=== PATIENT | female | born 1985 | race Caucasian/White ===

== ENCOUNTER 2017-11-18 13:07 | Outpatient (CLI) | payer OTHER ==
[2017-11-18 13:14] VITALS: BP 109/68
[2017-11-18] MEDS ORDERED: ESCI20TA10 PO (14:42)
[2017-11-18] MEDS ORDERED: FERR325T5 PO (14:45)
[2017-11-18] MEDS ORDERED: PREN1TAB60 PO (14:46)
== END 2017-11-18 15:20 | disposition home or self-care (01) ==
LOC: LDOP 13:07
PROVIDERS: ATTEND Obstetrics & Gynecology Gynecology
DX: O26.893 Other specified pregnancy related conditions, third trimester (principal); R10.9 Unspecified abdominal pain; Z3A.36 36 weeks gestation of pregnancy
CPT/HCPCS: 59025; 99201; G0463

== ENCOUNTER 2017-11-19 18:35 | Outpatient (CLI) | payer OTHER ==
[~2017-11-19] VITALS: Ht 170.2 cm; Wt 76.4 kg
[~2017-11-19 18:35] MED LIST: ESCI20TA10 PO; FERR325T5 PO; PREN1TAB60 PO
[2017-11-19 18:46] VITALS: BP 109/71
[2017-11-19] MEDS ORDERED: TERBUTALINE 1 MG/ML, 1ML ONE (19:12)
[2017-11-19] MEDS ORDERED: TERBUTALINE 1 MG/ML, 1ML SQ ONE (19:30)
[2017-11-19 19:47] LABS: MICROSCOPIC NOT IND
== END 2017-11-19 20:56 | disposition home or self-care (01) ==
LOC: LDOP 18:35
PROVIDERS: ATTEND Obstetrics & Gynecology Gynecology
DX: O62.9 Abnormality of forces of labor, unspecified (principal); O26.893 Other specified pregnancy related conditions, third trimester; R10.9 Unspecified abdominal pain; M54.9 Dorsalgia, unspecified; Z3A.00 Weeks of gestation of pregnancy not specified
CPT/HCPCS: 59025; 81003; 87086; 96372; 99211; J3105; G0463

== ENCOUNTER 2017-11-21 12:54 | Outpatient (CLI) | payer OTHER ==
[~2017-11-21] VITALS: Ht 170.2 cm; Wt 76.3 kg
[2017-11-21 13:04] VITALS: BP 110/69
[2017-11-21] MEDS ORDERED: TERBUTALINE 1 MG/ML, 1ML SQ ONE (14:00)
[2017-11-21] MEDS ORDERED: TERBUTALINE 1 MG/ML, 1ML ONE (14:01)
== END 2017-11-21 15:27 | disposition home or self-care (01) ==
LOC: LDOP 12:54
PROVIDERS: ATTEND Obstetrics & Gynecology Gynecology
DX: O26.893 Other specified pregnancy related conditions, third trimester (principal); R10.9 Unspecified abdominal pain; Z3A.33 33 weeks gestation of pregnancy
CPT/HCPCS: 59025; 96372; 99211; J3105; G0463

== ENCOUNTER → 2018-05-20 | Outpatient (CLI) | payer OTHER ==
[~2018-05-20] MED LIST changes: +IBUP-1222 PO; +OXYC-302 PO
[2018-05-20 14:43] LABS: BASOPHILS # (AUTO) 0.02 x10^3/uL (0-0.1); BASOPHILS % (AUTO) 0 % (0-1); EOSINOPHILS # (AUTO) 0.08 x10^3/uL (0-0.4); EOSINOPHILS % (AUTO) 1 % (1-7); LYMPHOCYTES # (AUTO) 1.52 x10^3/uL (1-3.4); LYMPHOCYTES % (AUTO) 22 % (22-44); MD NO; MEAN CORPUSCULAR HEMOGLOBIN 28.3 pg (27.0-34.8); MEAN CORPUSCULAR HGB CONC 33.2 g/dL (32.4-35.8); MEAN CORPUSCULAR VOLUME 85.1 fL (80-100); MEAN PLATELET VOLUME 7.9 fL (7.4-10.4); MONOCYTES # (AUTO) 0.53 x10^3/uL (0.2-0.8); MONOCYTES % (AUTO) 8 % (2-9); NEUTROPHILS # (AUTO) 4.87 x10^3/uL (1.8-6.8); NEUTROPHILS % (AUTO) 69 % (42-75); PLATELET COUNT 348 x10^3/uL (130-400); RED BLOOD COUNT 4.72 x10^6/uL (3.82-5.3); RED CELL DISTRIBUTION WIDTH 14.8 % (9.6-15.2)
[2018-05-20 14:51] LABS: ALANINE AMINOTRANSFERASE 15 U/L (12-78); ALBUMIN 3.8 g/dL (3.4-5.0); ANION GAP 8 mmol/L (5-15); CALCIUM 8.7 mg/dL (8.5-10.1); CHLORIDE 108 mmol/L (98-107); CREATININE 0.78 mg/dL (0.55-1.02)
[2018-05-20 14:53] LABS: ALKALINE PHOSPHATASE 65 U/L (45-117); BILIRUBIN,TOTAL 0.3 mg/dL (0.2-1.0)
== END | disposition home or self-care (01) ==
LOC: STAR 13:39
PROVIDERS: ATTEND Surgery
DX: Z01.818 Encounter for other preprocedural examination (principal); K56.51 Intestinal adhesions [bands], with partial obstruction; R10.31 Right lower quadrant pain
CPT/HCPCS: 36415; 80053; 85025; 93005

== ENCOUNTER 2018-05-26 10:28 | Inpatient (IN) | payer OTHER ==
[~2018-05-26] VITALS: Ht 170.2 cm; Wt 70.6 kg
[2018-05-26 11:02] VITALS: BP 107/69
[2018-05-26] MEDS ORDERED: LACTATED RINGERS 1,000 ML IV SCH ×2 (11:02→13:34)
[2018-05-26] MEDS ORDERED: OXYC5CAP2 PO (11:08)
[2018-05-26] MEDS ORDERED: FENTANYL PF 250 MCG/5ML ONE ×2 (12:18→13:08)
[2018-05-26] MEDS ORDERED: EPHEDRINE 50 MG/ML, 1ML ONE (12:26)
[2018-05-26] MEDS ORDERED: GLYCOPYRROLATE 0.2MG/1ML, 5ML ONE (12:40)
[2018-05-26] MEDS ORDERED: DEXAMETHASONE 4 MG/ML, 1ML ONE (12:40)
[2018-05-26] MEDS ORDERED: PROPOFOL 10 MG/ML, 20ML ONE (12:40)
[2018-05-26] MEDS ORDERED: SUCCINYLCHOLINE 20 MG/ML, 10ML ONE (12:40)
[2018-05-26] MEDS ORDERED: CEFAZOLIN 1,000 MG ONE (12:40)
[2018-05-26] MEDS ORDERED: ROCURONIUM 10MG/ML,5ML ONE (12:40)
[2018-05-26] MEDS ORDERED: ONDANSETRON 2MG/ML, 2ML ONE (12:40)
[2018-05-26] MEDS ORDERED: NEOSTIGMINE 1 MG/ML, 10ML ONE (12:40)
[2018-05-26 13:35] VITALS: BP 107/88
[2018-05-26] MEDS ORDERED: KETOROLAC 30 MG/1 ML ONE ×2 (14:12→16:34)
[2018-05-26] MEDS ORDERED: HYDROmorphone 2 MG/ML, 1ML ONE ×3 (14:27→20:45)
[2018-05-26] MEDS ORDERED: OXYcodone 5 MG/5 ML ORAL.SOL UDC ONE (14:28)
[2018-05-26] MEDS ORDERED: ONDANSETRON 2MG/ML, 2ML IV PRN (14:30)
[2018-05-26] MEDS ORDERED: MORPHINE SULFATE 4 MG/ML, 1ML IVPush PRN (14:30)
[2018-05-26] MEDS ORDERED: ONDANSETRON ODT 8 MG PO PRN (14:30)
[2018-05-26] MEDS ORDERED: MEPERIDINE/PF 25MG/0.5ML IVPush PRN (14:30)
[2018-05-26] MEDS ORDERED: FENTANYL PF 100 MCG/2ML IV PRN (14:30)
[2018-05-26] MEDS ORDERED: ACETAMINOPHEN 325 MG TABLET PO PRN (14:30)
[2018-05-26] MEDS ORDERED: PROMETHAZINE 25 MG/ML, 1ML IV PRN (14:30)
[2018-05-26] MEDS ORDERED: KETOROLAC 30 MG/1 ML IV PRN (14:30)
[2018-05-26] MEDS ORDERED: OXYcodone 5 MG/5 ML ORAL.SOL UDC PO PRN (14:30)
[2018-05-26] MEDS: HYDROmorphone 1 MG/ML, 1ML IV PRN ×5 (14:32→20:55)
[2018-05-26] MEDS: KETOROLAC 30 MG/1 ML IV SCH ×2 (16:39→22:45)
[2018-05-26] MEDS: OXYcodone/APAP 10/325MG TABLET PO PRN ×2 (18:37→22:45)
[2018-05-26 19:37] VITALS: BP 114/65
[2018-05-26 22:50] VITALS: BP 107/59
[2018-05-27] MEDS ORDERED: HYDROmorphone 2 MG/ML, 1ML ONE ×3 (00:04→07:23)
[2018-05-27] MEDS: HYDROmorphone 1 MG/ML, 1ML IV PRN ×3 (00:07→07:27)
[2018-05-27 03:00] VITALS: BP 105/64
[2018-05-27] MEDS: OXYcodone/APAP 10/325MG TABLET PO PRN ×2 (03:00→08:36)
[2018-05-27 04:55] VITALS: BP 101/60
[2018-05-27] MEDS: KETOROLAC 30 MG/1 ML IV SCH (04:56)
[2018-05-27 06:40] VITALS: BP 96/53
[2018-05-27 07:23] VITALS: BP 115/74
[2018-05-27] MEDS: ENOXAPARIN 30 MG/0.3 ML SQ SCH ×2 (08:36→21:06)
[2018-05-27] MEDS ORDERED: ONDANSETRON 2MG/ML, 2ML IVPush PRN (09:00)
[2018-05-27] MEDS ORDERED: LORazepam 1MG TABLET PO PRN (09:00)
[2018-05-27 09:34] LABS: BASOPHILS # (AUTO) 0.08 x10^3/uL (0-0.1); BASOPHILS % (AUTO) 1 % (0-1); EOSINOPHILS % (AUTO) 1 % (1-7); LYMPHOCYTES # (AUTO) 2.13 x10^3/uL (1-3.4); LYMPHOCYTES % (AUTO) 20 % (22-44); MD NO; MEAN CORPUSCULAR HEMOGLOBIN 28.3 pg (27.0-34.8); MEAN CORPUSCULAR HGB CONC 32.9 g/dL (32.4-35.8); MEAN CORPUSCULAR VOLUME 85.8 fL (80-100); MEAN PLATELET VOLUME 8.3 fL (7.4-10.4); MONOCYTES # (AUTO) 0.93 x10^3/uL (0.2-0.8); MONOCYTES % (AUTO) 9 % (2-9); NEUTROPHILS # (AUTO) 7.56 x10^3/uL (1.8-6.8); NEUTROPHILS % (AUTO) 70 % (42-75); PLATELET COUNT 352 x10^3/uL (130-400); RED BLOOD COUNT 4.41 x10^6/uL (3.82-5.3); RED CELL DISTRIBUTION WIDTH 14.4 % (9.6-15.2)
[2018-05-27] MEDS: ACETAMINOPHEN 650 MG/20.3 ML UDC PO PRN ×3 (10:51→23:59)
[2018-05-27] MEDS ORDERED: HYDROmorphone 2MG TABLET ONE ×4 (12:01→23:56)
[2018-05-27] MEDS: HYDROmorphone 4MG TABLET PO PRN ×4 (12:14→23:59)
[2018-05-27 16:00] VITALS: BP 102/64
[2018-05-27 19:32] VITALS: BP 101/65
[2018-05-28] MEDS ORDERED: HYDROmorphone 2MG TABLET ONE ×3 (03:58→11:54)
[2018-05-28] MEDS: HYDROmorphone 4MG TABLET PO PRN ×3 (04:01→11:58)
[2018-05-28 04:02] VITALS: BP 93/25
[2018-05-28] MEDS: ACETAMINOPHEN 650 MG/20.3 ML UDC PO PRN ×3 (06:10→23:01)
[2018-05-28 07:50] VITALS: BP 97/61
[2018-05-28] MEDS: ENOXAPARIN 30 MG/0.3 ML SQ SCH ×2 (08:03→20:03)
[2018-05-28 13:24] VITALS: BP 101/66
[2018-05-28] MEDS: OXYcodone 5 MG/5 ML ORAL.SOL UDC PO PRN ×3 (15:46→23:58)
[2018-05-28] MEDS: DOCUSATE 100 MG CAPSULE PO SCH (20:06)
[2018-05-28 20:27] VITALS: BP 93/56
[2018-05-29 03:46] VITALS: BP 93/57
[2018-05-29] MEDS: OXYcodone 5 MG/5 ML ORAL.SOL UDC PO PRN ×4 (03:57→17:01)
[2018-05-29] MEDS: ACETAMINOPHEN 650 MG/20.3 ML UDC PO PRN ×3 (04:57→17:05)
[2018-05-29 08:00] VITALS: BP 111/78
[2018-05-29] MEDS: ENOXAPARIN 30 MG/0.3 ML SQ SCH (08:04)
[2018-05-29] MEDS: DOCUSATE 100 MG CAPSULE PO SCH (08:05)
[2018-05-29 08:23] LABS: CREATININE 0.79 mg/dL (0.55-1.02)
[2018-05-29 14:00] VITALS: BP 95/55
== END 2018-05-29 17:58 | disposition home or self-care (01) | DRG 331 ==
LOC: ORIP 10:28 → 4NOR 15:27
PROVIDERS: ADMIT Surgery; ATTEND Surgery
PROC: 0DTF0ZZ Resection of Right Large Intestine, Open Approach (ICD-10-PCS; principal; 2018-05-26 12:30)
DX: K56.2 Volvulus (principal); G89.29 Other chronic pain; K66.0 Peritoneal adhesions (postprocedural) (postinfection); N80.9 Endometriosis, unspecified; N94.10 Unspecified dyspareunia; F32.9 Major depressive disorder, single episode, unspecified; Z82.49 Family history of ischemic heart disease and other diseases of the circulatory system; Z90.49 Acquired absence of other specified parts of digestive tract; Z88.2 Allergy status to sulfonamides; Z88.8 Allergy status to other drugs, medicaments and biological substances; Z91.018 Allergy to other foods; Z91.010 Allergy to peanuts
CPT/HCPCS: 36415; J3490; 82565; 84703; 85025; 86850; 86900; 88307; G0378; J0690; J1100; J1170; J1650; J1885; J2405; J2704; J2710; J3010; J0330; J7120

== ENCOUNTER 2019-08-10 14:12 | Outpatient (CLI) | payer OTHER ==
[~2019-08-10 14:12] MED LIST changes: +OXYC5CAP2 PO
[2019-08-10] MEDS ORDERED: ESCI20TA10 PO (14:40)
[2019-08-10] MEDS ORDERED: CYCL-259 PO (14:40)
[2019-08-10 15:18] LABS: BASOPHILS # (AUTO) 0.03 x10^3/uL (0-0.1); BASOPHILS % (AUTO) 0 % (0-1); EOSINOPHILS # (AUTO) 0.06 x10^3/uL (0-0.4); EOSINOPHILS % (AUTO) 1 % (1-7); LYMPHOCYTES # (AUTO) 2.36 x10^3/uL (1-3.4); LYMPHOCYTES % (AUTO) 25 % (22-44); MD NO; MEAN CORPUSCULAR HEMOGLOBIN 29.8 pg (27.0-34.8); MEAN CORPUSCULAR HGB CONC 34.9 g/dL (32.4-35.8); MEAN CORPUSCULAR VOLUME 85.6 fL (80-100); MEAN PLATELET VOLUME 7.6 fL (7.4-10.4); MONOCYTES # (AUTO) 0.45 x10^3/uL (0.2-0.8); MONOCYTES % (AUTO) 5 % (2-9); NEUTROPHILS # (AUTO) 6.63 x10^3/uL (1.8-6.8); NEUTROPHILS % (AUTO) 70 % (42-75); PLATELET COUNT 394 x10^3/uL (130-400); RED BLOOD COUNT 4.67 x10^6/uL (3.82-5.3); RED CELL DISTRIBUTION WIDTH 13.7 % (9.6-15.2)
[2019-08-10 15:28] LABS: ANION GAP 8 mmol/L (5-15); CHLORIDE 110 mmol/L (98-107)
[2019-08-10 15:32] LABS: ALANINE AMINOTRANSFERASE 22 U/L (12-78); ALKALINE PHOSPHATASE 56 U/L (45-117); BILIRUBIN,TOTAL 0.3 mg/dL (0.2-1.0); CREATININE 0.77 mg/dL (0.55-1.02); TOTAL PROTEIN 7.8 g/dL (6.4-8.2)
== END 2019-08-10 23:59 | disposition home or self-care (01) ==
LOC: STAR 14:12
PROVIDERS: ATTEND Specialist
DX: Z01.818 Encounter for other preprocedural examination (principal); N87.0 Mild cervical dysplasia; N80.9 Endometriosis, unspecified; G89.29 Other chronic pain; Z90.49 Acquired absence of other specified parts of digestive tract; N94.10 Unspecified dyspareunia; F32.9 Major depressive disorder, single episode, unspecified
CPT/HCPCS: 36415; 80053; 85025; 93005

== ENCOUNTER 2019-08-16 12:33 | Observation (INO) | payer OTHER ==
[~2019-08-16] VITALS: Ht 170.2 cm; Wt 86.0 kg
[~2019-08-16 12:33] MED LIST changes: +CYCL-259 PO
[2019-08-16 13:05] VITALS: BP 118/79
[2019-08-16] MEDS ORDERED: LACTATED RINGERS 1,000 ML IV SCH (13:08)
[2019-08-16] MEDS ORDERED: FENTANYL PF 250 MCG/5ML ONE (13:40)
[2019-08-16] MEDS ORDERED: BUPIVACAINE/PF 0.25% ONE (13:41)
[2019-08-16] MEDS ORDERED: SUCCINYLCHOLINE 20 MG/ML, 10ML ONE (13:41)
[2019-08-16] MEDS ORDERED: PROPOFOL 10 MG/ML, 20ML ONE (13:41)
[2019-08-16] MEDS ORDERED: ROCURONIUM 10MG/ML,5ML ONE (13:41)
[2019-08-16] MEDS ORDERED: DEXAMETHASONE 4 MG/ML, 1ML ONE ×2 (13:41→13:46)
[2019-08-16] MEDS ORDERED: DIPHENHYDRAMINE 50 MG/ML, 1ML ONE (13:46)
[2019-08-16 13:50] LABS: HCG UR SG 1.022 (1.003-1.030)
[2019-08-16] MEDS ORDERED: INDIGO CARMINE 0.8%, 5ML ONE (14:29)
[2019-08-16] MEDS ORDERED: ISOSULFAN BLUE 10 MG/ML, 5ML IV ONE (14:29)
[2019-08-16] MEDS ORDERED: CEFAZOLIN 1,000 MG ONE ×2 (14:39)
[2019-08-16] MEDS ORDERED: GENTIAN VIOLET SOLN 2% 60 ML ONE (14:53)
[2019-08-16] MEDS ORDERED: ALBUTEROL SULFATE 2.5 MG/3 ML NPPB PRN (15:00)
[2019-08-16] MEDS ORDERED: hydrALAzine 20 MG/ML, 1ML IV PRN (15:00)
[2019-08-16] MEDS ORDERED: ACETAMINOPHEN 325 MG TABLET PO PRN (15:00)
[2019-08-16] MEDS ORDERED: OXYcodone 5 MG/5 ML ORAL.SOL UDC PO PRN (15:00)
[2019-08-16] MEDS ORDERED: LABETALOL 5MG/ML, 20ML IV PRN (15:00)
[2019-08-16] MEDS ORDERED: HALOPERIDOL 5 MG/ML IV PRN (15:00)
[2019-08-16] MEDS ORDERED: ONDANSETRON ODT 8 MG PO PRN (15:00)
[2019-08-16] MEDS ORDERED: MEPERIDINE/PF 25MG/ML,1ML IVPush PRN (15:00)
[2019-08-16] MEDS ORDERED: SCOPOLAMINE PATCH, 1.5MG PATCH.TD72 TD PRN (15:00)
[2019-08-16] MEDS ORDERED: EPHEDRINE 50 MG/ML, 1ML IVPush PRN (15:00)
[2019-08-16] MEDS ORDERED: ONDANSETRON 2MG/ML, 2ML IV PRN ×2 (15:00→19:30)
[2019-08-16] MEDS ORDERED: FENTANYL PF 100 MCG/2ML ONE ×4 (15:12→17:23)
[2019-08-16] MEDS ORDERED: KETOROLAC 30 MG/1 ML ONE (15:31)
[2019-08-16] MEDS ORDERED: SUGAMMADEX 200 MG/2 ML IVPush ONE (15:33)
[2019-08-16] MEDS ORDERED: ONDANSETRON 2MG/ML, 2ML ONE ×2 (15:47)
[2019-08-16] MEDS: FENTANYL PF 100 MCG/2ML IV PRN ×5 (16:18→17:25)
[2019-08-16] MEDS ORDERED: HYDROmorphone 1 MG/ML, 1ML VIAL ONE ×4 (16:28→17:23)
[2019-08-16] MEDS: HYDROmorphone 2 MG/ML, 1ML IVPush PRN ×5 (16:31→18:25)
[2019-08-16] MEDS ORDERED: ONDANSETRON ODT 8 MG ONE (16:32)
[2019-08-16] MEDS ORDERED: OXYcodone 5 MG/5 ML ORAL.SOL UDC ONE (17:14)
[2019-08-16] MEDS ORDERED: ACETAMINOPHEN 650 MG/20.3 ML UDC ONE (17:14)
[2019-08-16] MEDS: CYCLOBENZAPRINE 10 MG TABLET PO SCH (19:46)
[2019-08-16] MEDS: MEPERIDINE/PF 100 MG/ML IM PRN ×2 (19:47→20:30)
[2019-08-16] MEDS ORDERED: ESTRADIOL 0.1 MG/24 HR PATCH TD SCH (20:00)
[2019-08-16] MEDS: KETOROLAC 30 MG/1 ML IV SCH (21:16)
[2019-08-16] MEDS: OXYcodone 5 MG/5 ML ORAL.SOL UDC PO PRN (21:27)
[2019-08-16] MEDS ORDERED: CEFAZOLIN PMX 2GM/50ML 50 ML IVPB ONE (22:00)
[2019-08-16] MEDS: HYDROmorphone 2 MG/ML, 1ML IV PRN ×2 (22:41→23:13)
[2019-08-17] MEDS: OXYcodone 5 MG/5 ML ORAL.SOL UDC PO PRN ×6 (00:21→23:24)
[2019-08-17] MEDS: HYDROmorphone 2 MG/ML, 1ML IV PRN ×5 (01:38→18:04)
[2019-08-17 03:04] VITALS: BP 111/76
[2019-08-17] MEDS: KETOROLAC 30 MG/1 ML IV SCH ×3 (03:36→14:51)
[2019-08-17] MEDS: D5%-LACTATED RINGERS 1,000 ML IV SCH ×3 (03:40→18:04)
[2019-08-17 06:15] VITALS: BP 90/54
[2019-08-17] MEDS: OXYcodone IR 5MG TABLET PO PRN ×2 (07:53→15:53)
[2019-08-17] MEDS: ESCITALOPRAM 10MG TABLET PO SCH (09:00)
[2019-08-17] MEDS: CYCLOBENZAPRINE 10 MG TABLET PO SCH ×2 (09:06→20:33)
[2019-08-17 12:07] VITALS: BP 95/66
[2019-08-17 20:06] VITALS: BP 103/69
[2019-08-17] MEDS: IBUPROFEN 600 MG TABLET PO SCH (20:33)
[2019-08-18] MEDS: HYDROmorphone 2 MG/ML, 1ML IV PRN ×2 (00:20→05:30)
[2019-08-18 01:17] VITALS: BP 94/65
[2019-08-18] MEDS: D5%-LACTATED RINGERS 1,000 ML IV SCH ×2 (02:41→11:00)
[2019-08-18] MEDS: IBUPROFEN 600 MG TABLET PO SCH ×2 (03:27→08:09)
[2019-08-18] MEDS: OXYcodone 5 MG/5 ML ORAL.SOL UDC PO PRN ×3 (03:29→12:14)
[2019-08-18 06:39] VITALS: BP 88/56
[2019-08-18] MEDS: CYCLOBENZAPRINE 10 MG TABLET PO SCH (08:09)
[2019-08-18] MEDS: ESCITALOPRAM 10MG TABLET PO SCH (08:09)
[2019-08-18] MEDS ORDERED: IBUP200T49 PO (09:39)
[2019-08-18] MEDS ORDERED: ESTR1PAT25 TD (09:43)
[2019-08-18 12:22] VITALS: BP 89/62
== END 2019-08-18 14:07 | disposition home or self-care (01) ==
LOC: INTOOBSV 12:33 → ORIP 12:33 → 4NE 19:00 → DCLOUNGE 08-18 14:00
PROVIDERS: ADMIT Specialist; ATTEND Specialist
DX: N80.9 Endometriosis, unspecified (principal); G89.29 Other chronic pain; R10.2 Pelvic and perineal pain; Z88.2 Allergy status to sulfonamides; F32.9 Major depressive disorder, single episode, unspecified; Z87.410 Personal history of cervical dysplasia; Z79.891 Long term (current) use of opiate analgesic
CPT/HCPCS: 36415; 58150; 81025; 85014; 85018; 86850; 86900; 88307; 96365; 96372; 96375; 96376; G0378; J0330; J0690; J1100; J1170; J1200; J1885; J2175; J2405; J2704; J3010; J3490; J7120; J7121; Q0162

== ENCOUNTER 2020-08-09 20:43 | Emergency (ER) | payer OTHER ==
[~2020-08-09] VITALS: Ht 170.2 cm; Wt 95.1 kg
[~2020-08-09 20:43] MED LIST changes: +ESTR1PAT25 TD; +IBUP200T49 PO
--- NOTE | 2020-08-09 20:58 | NUR ---
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
--- NOTE | 2020-08-09 21:33 | NUR ---
PT STATES SHE HAS A HX OF MIGRAINES BUT THEY HAVE NEVER PRESENTED LIKE THIS BEFORE. PT STATES SHE AWOKE THIS AM WITH BLURRY VISION IN HER LEFT EYE "I THOUGHT IT WAS JUST GUNK IN MY EYE FROM SLEEPING." PT STATES [place] WITH PHOTOPHOBIA BEGAN AT 1500 TODAY SHE ALSO NOTED BEING "DISORIENTED AND JUST NOT RIGHT." PT ALSO NOTED HER SCLERA IN HER LEFT EYE WAS RED.
[2020-08-09] MEDS ORDERED: PROPARACAINE OPHTH 0.5%, 15ML ONE (21:45)
[2020-08-09] MEDS ORDERED: ONDANSETRON 2MG/ML, 2ML ONE (21:45)
[2020-08-09] MEDS ORDERED: FLUORESCEIN OPHTHALMIC 1 MG STRIP ONE (21:46)
[2020-08-09] MEDS ORDERED: MORPHINE SULFATE 4 MG/ML, 1ML ONE ×2 (21:51→23:53)
[2020-08-09] MEDS ORDERED: PROPARACAINE OPHTH 0.5%, 15ML EACHEYE ONE (22:00)
[2020-08-09] MEDS ORDERED: MORPHINE SULFATE 4 MG/ML, 1ML IVPush ONE (22:00)
[2020-08-09] MEDS ORDERED: ONDANSETRON 2MG/ML, 2ML IVPush ONE (22:00)
--- NOTE | 2020-08-09 22:00 | NUR ---
RECEIVED REPORT FROM SHORTY. PT SITTING IN EXAM CHAIR WITH LIGHTS OFF FOR COMFORT, RESPONDS APPROP TO STAFF, C/O OF PAIN- MEDICATED PER EMAR, COMFORT MEASURES PROVIDED, CALL LIGHT WITHIN REACH.
[2020-08-09 22:22] LABS: BASOPHILS % (AUTO) 1 % (0-1); EOSINOPHILS % (AUTO) 2 % (1-7); LYMPHOCYTES % (AUTO) 26 % (22-44); MD NO; MEAN CORPUSCULAR HGB CONC 32.8 g/dL (32.4-35.8); MEAN PLATELET VOLUME 7.5 fL (7.4-10.4); MONOCYTES % (AUTO) 7 % (2-9); NEUTROPHILS % (AUTO) 65 % (42-75); PLATELET COUNT 367 x10^3/uL (130-400); RED CELL DISTRIBUTION WIDTH 15.3 % (9.6-15.2)
[2020-08-09 22:38] LABS: CHLORIDE 110 mmol/L (98-107)
--- NOTE | 2020-08-09 22:38 | NUR ---
CT PENDING BETA.
[2020-08-09 22:39] LABS: ALBUMIN 3.9 g/dL (3.4-5.0); ANION GAP 4 mmol/L (5-15); CALCIUM 8.9 mg/dL (8.5-10.1); CREATININE 0.91 mg/dL (0.55-1.02)
--- NOTE | 2020-08-09 23:02 | NUR ---
PT SITTING IN EXAM CHAIR WITH EYES CLOSED & LIGHTS OFF FOR COMFORT, RESPONDS APPROP TO STAFF, NAD, NO NEEDS AT THIS TIME, CALL LIGHT WITHIN REACH.
[2020-08-09] MEDS ORDERED: OMNIPAQUE 350 MG/ML, 75ML BOTTLE ONE (23:23)
[2020-08-09 23:49] VITALS: BP 121/83
[2020-08-09] MEDS: MORPHINE SULFATE 4 MG/ML, 1ML IVPush PRN (23:55)
--- NOTE | 2020-08-10 00:09 | NUR ---
REPORT GIVEN TO CIERRA
--- NOTE | 2020-08-10 00:18 | NUR ---
ASSUMED CARE OF PT. FROM PILAR MORENO. PT. SITTING IN CHAIR. DR. CORNEJO IN TO FURTHER EVAL PT. AND DISCUSS POC. OPTHO BEING CONSULTED NOW.
[2020-08-10] MEDS ORDERED: MORPHINE SULFATE 4 MG/ML, 1ML ONE (00:39)
[2020-08-10] MEDS: MORPHINE SULFATE 4 MG/ML, 1ML IVPush PRN (00:43)
--- NOTE | 2020-08-10 00:49 | NUR ---
REPORT TO PILAR ESPINO TO ASSUME CARE OF PT.
[2020-08-10] MEDS ORDERED: PROPOFOL 100 ML IV PRN (01:00)
[2020-08-10] MEDS ORDERED: CARBAMAZEPINE 200 MG TABLET PO ONE (01:00)
[2020-08-10] MEDS ORDERED: CARBAMAZEPINE 200 MG TABLET ONE (01:06)
== END 2020-08-10 02:02 | disposition home or self-care (01) ==
LOC: ED 21:47
DX: G50.0 Trigeminal neuralgia (principal); G43.909 Migraine, unspecified, not intractable, without status migrainosus; H57.12 Ocular pain, left eye; R94.31 Abnormal electrocardiogram [ECG] [EKG]
CPT/HCPCS: 36415; 70450; 70481; 80048; 82040; 84703; 85025; 93005; 96374; 96375; 96376; 99285; J2270; J2405; Q9967